=== PATIENT | female | born 1980 | race Two or more races ===

== ENCOUNTER 2018-03-30 17:49 | Emergency (ER) | payer BC ==
[~2018-03-30] VITALS: Ht 170.2 cm; Wt 84.6 kg
[2018-03-30] MEDS ORDERED: ondansetron 4mg rapidly disintigrating tab PO ONE (19:50)
[2018-03-30] MEDS ORDERED: HYDROmorphone 1 mg/ml syringe IM ONE (19:50)
[2018-03-30] MEDS ORDERED: CARI350T PO (19:54)
[2018-03-30] MEDS ORDERED: NORT25CA PO (19:54)
[2018-03-30 20:03] VITALS: BP 121/42
== END 2018-03-30 20:24 | disposition home or self-care (01) ==
LOC: ER 17:50
DX: M54.42 Lumbago with sciatica, left side (principal); M79.605 Pain in left leg; G89.29 Other chronic pain; R11.10 Vomiting, unspecified; Z88.5 Allergy status to narcotic agent; Z79.899 Other long term (current) drug therapy
CPT/HCPCS: 96372; 99283; J1170